=== PATIENT | female | born 1990 | race African-American/Black ===

== ENCOUNTER 2017-04-08 01:28 | Observation (INO) | payer OTHER ==
[~2017-04-08] VITALS: Ht 154.9 cm; Wt 74.8 kg
[2017-04-08] MEDS ORDERED: LACTATED RINGERS 1,000 ML IV SCH (02:30)
[2017-04-08] MEDS ORDERED: FERR325T6 PO (03:42)
[2017-04-08] MEDS ORDERED: PNV1TABL76 MT (03:42)
== END 2017-04-08 04:30 | disposition home or self-care (01) ==
LOC: L&D 01:28
PROVIDERS: ADMIT Obstetrics & Gynecology; ATTEND Obstetrics & Gynecology
DX: O26.893 Other specified pregnancy related conditions, third trimester (principal); R10.30 Lower abdominal pain, unspecified; Z3A.39 39 weeks gestation of pregnancy
CPT/HCPCS: 99281; G0378; J7120; 96360; 96361

== ENCOUNTER 2017-04-11 02:28 | Observation (INO) | payer OTHER ==
[~2017-04-11] VITALS: Ht 154.9 cm; Wt 74.8 kg
[~2017-04-11 02:28] MED LIST: FERR325T6 PO; PNV1TABL76 MT
[2017-04-11] MEDS ORDERED: LACTATED RINGERS 1,000 ML IV SCH (03:30)
== END 2017-04-11 06:00 | disposition home or self-care (01) ==
LOC: L&D 02:28
PROVIDERS: ADMIT Obstetrics & Gynecology; ATTEND Obstetrics & Gynecology
DX: O26.893 Other specified pregnancy related conditions, third trimester (principal); R10.30 Lower abdominal pain, unspecified; Z3A.39 39 weeks gestation of pregnancy
CPT/HCPCS: 96360; 96361; 99281; G0378; J7120

== ENCOUNTER 2017-04-20 05:43 | Inpatient (IN) | payer OTHER ==
[~2017-04-20] VITALS: Ht 157.5 cm; Wt 74.8 kg
[~2017-04-20 05:43] MED LIST changes: -FERR325T6 PO
[2017-04-20] MEDS ORDERED: DEXT 5%/LR + PITOCIN 20UNITS/L 1,000 ML IV SCH (06:36)
[2017-04-20] MEDS ORDERED: BUTORPHANOL TARTRATE 2 MG/ML VIAL IV PRN (06:45)
[2017-04-20] MEDS ORDERED: METHYLERGONOVINE MALEATE 0.2 MG/ML IM PRN ×2 (06:45→13:15)
[2017-04-20] MEDS ORDERED: MISOPROSTOL 100MCG TABLET VG SCH (06:45)
[2017-04-20] MEDS ORDERED: NALOXONE HCL 0.4 MG/ML 1ML VIAL IM PRN (06:45)
[2017-04-20] MEDS ORDERED: LIDOCAINE HCL 1% 20ML VIAL (Pyxis) INJ INFIL SCH (06:45)
[2017-04-20] MEDS ORDERED: CARBOPROST TROMETHAMINE 250 MCG/ML AMPUL IM PRN (06:45)
[2017-04-20] MEDS ORDERED: PENICILLIN G POTASSIUM 5 MMU in DEXT 5% WATER 100 ML IV SCH (07:00)
[2017-04-20 07:28] LABS: BASOPHILS % 0.7 % (0.0-2.0); HEMATOCRIT. 29.9 % (36.0-48.0); HEMOGLOBIN. 9.4 g/dL (12.0-16.0); LYMPHOCYTES % 18.3 % (20.0-50.0); MEAN PLATELET VOLUME 8.7 fl (7.4-10.4); MONOCYTES % 6.9 % (2.0-8.0); NEUTROPHILS % 73.1 % (40.0-76.0); PLATELET 308 x1000/uL (130-400); RED BLOOD CELL COUNT 4.27 mill/uL (4.2-5.4); RED CELL DISTRIBUTION WIDTH 20.1 % (11.6-14.6)
[2017-04-20 07:32] LABS: CLARITY URINE CLOUDY (CLEAR); COLOR URINE YELLOW (YELLOW); GLUCOSE URINE NEGATIVE (NEGATIVE); KETONES URINE NEGATIVE (NEGATIVE); LEUKOCYTE ESTERASE URINE 2+ (NEGATIVE); NITRITE URINE NEGATIVE (NEGATIVE); OCCULT BLOOD URINE 3+ (NEGATIVE); PH URINE 7.5 (4.5-8.0); PROTEIN URINE TRACE (NEGATIVE); SPECIFIC GRAVITY URINE 1.022 (1.005-1.030)
[2017-04-20] MEDS: LACTATED RINGERS 1,000 ML IV SCH ×2 (07:32→08:51)
[2017-04-20 07:53] LABS: *AMPHETAMINES SCREEN URINE NEGATIVE (NEGATIVE); *BARBITURATES SCREEN URINE NEGATIVE (NEGATIVE); *BENZODIAZEPINES SCREEN URINE NEGATIVE (NEGATIVE); *COCAINE SCREEN URINE NEGATIVE (NEGATIVE); CANNABINOID URINE SCREEN NEGATIVE (NEGATIVE); METHADONE URINE SCREEN NEGATIVE (NEGATIVE); OPIATES URINE SCREEN NEGATIVE (NEGATIVE); PHENCYCLIDINE URINE SCREEN NEGATIVE (NEGATIVE)
[2017-04-20 08:04] LABS: RUBELLA IGG 196.2 IU/mL (4.99-10)
[2017-04-20 08:05] LABS: HEPATITIS B SURFACE ANTIGEN NEGATIVE
[2017-04-20] MEDS ORDERED: FENTANYL CITRATE/PF 50MCG/ML 2ML VIAL ONE (08:56)
[2017-04-20] MEDS ORDERED: BUPIVACAINE HCL/NS/PF EPIDURAL 100 ML EP ONE (08:57)
[2017-04-20] MEDS ORDERED: BUPIVACAINE HCL/PF 0.25% (2.5MG/ML) 10ML ONE (08:57)
[2017-04-20] MEDS ORDERED: DIPHENHYDRAMINE 50MG/ML VIAL IM PRN (09:30)
[2017-04-20] MEDS ORDERED: ONDANSETRON HCL 4MG/2ML VIAL IV PRN (09:30)
[2017-04-20] MEDS ORDERED: BUPIVACAINE HCL/NS/PF EPIDURAL 100 ML EP SCH (09:30)
[2017-04-20 09:33] LABS: PLATELET ESTIMATE NORMAL
[2017-04-20] MEDS ORDERED: PENICILLIN G POTASSIUM 2.5 MMU in DEXTROSE 5% WATER 50 ML IV SCH (11:00)
[2017-04-20] MEDS ORDERED: IBUPROFEN 400MG TABLET PO PRN (13:15)
[2017-04-20] MEDS ORDERED: LANOLIN OINT 0.25 GM TUBE TOP PRN (13:15)
[2017-04-20] MEDS ORDERED: IBUPROFEN 800MG TABLET PO PRN (13:15)
[2017-04-20] MEDS ORDERED: RHO(D) IMMUNE GLOBULIN 300 MCG/SYR IM PRN (13:15)
[2017-04-20] MEDS: DEXT 5%/LR + PITOCIN 20UNITS/L 1,000 ML IV SCH ×2 (13:35→21:53)
[2017-04-20 14:35] VITALS: BP 108/63
[2017-04-20 20:00] VITALS: BP 102/73
[2017-04-20] MEDS: DOCUSATE SODIUM 100MG CAPSULE PO SCH (21:21)
[2017-04-21 06:00] VITALS: BP 127/90
[2017-04-21 06:41] LABS: BASOPHILS % 0.4 % (0.0-2.0); EOSINOPHILS % 1.2 % (0.0-5.0); HEMATOCRIT. 29.2 % (36.0-48.0); HEMOGLOBIN. 9.3 g/dL (12.0-16.0); LYMPHOCYTES % 16.2 % (20.0-50.0); MEAN CORPUSCULAR HEMOGLOBIN 22.3 pg (28.0-32.0); MEAN PLATELET VOLUME 8.8 fl (7.4-10.4); MONOCYTES % 7.1 % (2.0-8.0); NEUTROPHILS % 75.1 % (40.0-76.0); PLATELET 271 x1000/uL (130-400); RED BLOOD CELL COUNT 4.17 mill/uL (4.2-5.4); RED CELL DISTRIBUTION WIDTH 20.7 % (11.6-14.6)
[2017-04-21 08:00] VITALS: BP 123/61
[2017-04-21] MEDS ORDERED: PRENATAL VIT/FE FUMARATE/FA TABLET PO SCH (09:00)
[2017-04-21] MEDS ORDERED: INFLUENZA VIRUS VACCINE 0.5ML SYR IM ONE (15:15)
[2017-04-21] MEDS ORDERED: TETANUS, DIPHTHERIA, PERTUSSIS VAC/PF 0.5ML (>7YR OLD) IM ONE (15:15)
[2017-04-21 16:21] VITALS: BP 112/66
[2017-04-21 20:00] VITALS: BP 120/81
[2017-04-21] MEDS: DOCUSATE SODIUM 100MG CAPSULE PO SCH (20:48)
[2017-04-22 09:19] VITALS: BP 134/85
== END 2017-04-22 10:50 | disposition home or self-care (01) | DRG 560 ==
LOC: OBSVTOIN 05:43 → L&D 05:43 → 7EST PP/OB 14:30
PROVIDERS: ADMIT Obstetrics & Gynecology; ATTEND Obstetrics & Gynecology
PROC: 3E0S3BZ Introduction of Anesthetic Agent into Epidural Space, Percutaneous Approach (ICD-10-PCS; 2017-04-20)
PROC: 00HU33Z Insertion of Infusion Device into Spinal Canal, Percutaneous Approach (ICD-10-PCS; 2017-04-20)
PROC: 10E0XZZ Delivery of Products of Conception, External Approach (ICD-10-PCS; principal; 2017-04-20 12:28)
DX: O48.0 Post-term pregnancy (principal); D62 Acute posthemorrhagic anemia; O99.03 Anemia complicating the puerperium; O76 Abnormality in fetal heart rate and rhythm complicating labor and delivery; O69.81X0 Labor and delivery complicated by cord around neck, without compression, not applicable or unspecified; O99.824 Streptococcus B carrier state complicating childbirth; Z37.0 Single live birth; Z3A.41 41 weeks gestation of pregnancy
CPT/HCPCS: 36415; 80305; 81001; 85025; 85610; 85730; 86592; 86703; 86762; 86850; 86900; 87340; 90686; 90715; J0595; J2540; J2590; J3010; J3490; J7060; J7120; A4315

== ENCOUNTER 2018-03-31 00:27 | Emergency (ER) | payer OTHER ==
[~2018-03-31] VITALS: Ht 154.9 cm; Wt 77.0 kg
[2018-03-31 05:12] VITALS: BP 115/63
== END 2018-03-31 05:15 | disposition home or self-care (01) ==
LOC: ER 00:27
DX: F41.9 Anxiety disorder, unspecified (principal)
CPT/HCPCS: 81025; 99284

== ENCOUNTER 2020-01-19 09:04 | Emergency (ER) | payer OTHER ==
[~2020-01-19] VITALS: Ht 154.9 cm; Wt 77.0 kg
[2020-01-19 10:13] LABS: HEMATOCRIT. 42.4 % (36.0-48.0); HEMOGLOBIN. 14.1 g/dL (12.0-16.0); MEAN CORPUSCULAR VOLUME 86.8 fL (81.0-99.0); MEAN PLATELET VOLUME 8.5 fl (7.4-10.4); PLATELET 312 x1000/uL (130-400); RED BLOOD CELL COUNT 4.88 mill/uL (4.2-5.4)
[2020-01-19 10:19] LABS: CHLORIDE 109 mEq/L (98-107)
[2020-01-19 10:30] LABS: B-HCG QUANTITATIVE 41 mIU/mL (<3)
[2020-01-19 11:30] VITALS: BP 119/64
[2020-01-19 11:50] LABS: PLATELET ESTIMATE NORMAL
[2020-01-19 11:55] LABS: CLARITY URINE CLOUDY (CLEAR); COLOR URINE BLOODY (YELLOW); KETONES URINE TRACE (NEGATIVE); LEUKOCYTE ESTERASE URINE NEGATIVE (NEGATIVE); NITRITE URINE NEGATIVE (NEGATIVE); OCCULT BLOOD URINE 3+ (NEGATIVE); PH URINE 7.5 (4.5-8.0); PROTEIN URINE 2+ (NEGATIVE); SPECIFIC GRAVITY URINE 1.026 (1.005-1.030)
== END 2020-01-19 12:49 | disposition home or self-care (01) ==
LOC: ER 09:04
DX: O20.0 Threatened abortion (principal); Z3A.01 Less than 8 weeks gestation of pregnancy
CPT/HCPCS: 36415; 76801; 80053; 81003; 81025; 84702; 85025; 86850; 86900; 93005; 99285

== ENCOUNTER 2020-01-21 09:36 | Emergency (ER) | payer OTHER ==
[~2020-01-21] VITALS: Ht 154.9 cm; Wt 77.0 kg
[2020-01-21 10:26] LABS: HEMATOCRIT. 38.2 % (36.0-48.0); HEMOGLOBIN. 12.7 g/dL (12.0-16.0); MEAN CORPUSCULAR VOLUME 87.2 fL (81.0-99.0); MEAN PLATELET VOLUME 8.4 fl (7.4-10.4); PLATELET 278 x1000/uL (130-400); RED BLOOD CELL COUNT 4.39 mill/uL (4.2-5.4); RED CELL DISTRIBUTION WIDTH 12.8 % (11.6-14.6)
[2020-01-21 10:29] LABS: CHLORIDE 110 mEq/L (98-107)
[2020-01-21 10:40] LABS: B-HCG QUANTITATIVE 19 mIU/mL (<3)
[2020-01-21 10:55] LABS: CLARITY URINE CLOUDY (CLEAR); COLOR URINE YELLOW (YELLOW); KETONES URINE NEGATIVE (NEGATIVE); LEUKOCYTE ESTERASE URINE NEGATIVE (NEGATIVE); NITRITE URINE NEGATIVE (NEGATIVE); OCCULT BLOOD URINE 3+ (NEGATIVE); PROTEIN URINE NEGATIVE (NEGATIVE); SPECIFIC GRAVITY URINE 1.021 (1.005-1.030); UROBILINOGEN URINE 0.2 E.U./dL (0.2-1.0)
[2020-01-21 11:24] LABS: PLATELET ESTIMATE NORMAL
[2020-01-21 13:21] VITALS: BP 116/72
== END 2020-01-21 13:23 | disposition home or self-care (01) ==
LOC: ER 09:36
DX: O03.1 Delayed or excessive hemorrhage following incomplete spontaneous abortion (principal)
CPT/HCPCS: 36415; 76801; 80053; 81003; 81025; 84702; 85025; 86850; 86900; 93005; 99285